=== PATIENT | male | born 1960 | race Hispanic/Latino ===

== ENCOUNTER 2022-07-12 22:32 | Inpatient (IN) | payer OTHER ==
[~2022-07-12] VITALS: Ht 167.6 cm; Wt 81.6 kg
[2022-07-12 23:10] LABS: BASOPHILS % (AUTO) 0.8 % (0.0-5.0); EOSINOPHILS % (AUTO) 2.4 % (0.0-8.0); HEMATOCRIT 48.4 % (42-54); LYMPHOCYTES % (AUTO) 25.2 % (21.0-51.0); MEAN CORPUSCULAR HEMOGLOBIN 28.8 pg (27.0-33.0); MEAN CORPUSCULAR HGB CONC 32.2 g/dL (32.0-36.0); MEAN CORPUSCULAR VOLUME 89.5 fL (79-99); MONOCYTES % (AUTO) 7.1 % (3.0-13.0); PLATELET COUNT (AUTO) 252 K/uL (130-400); RED BLOOD CELL COUNT(AUTO) 5.41 MIL/uL (4.50-6.20); RED CELL DISTRIBUTION WIDTH 14.6 % (11.0-15.5); WHITE BLOOD COUNT (AUTO) 9.4 K/uL (4.8-10.8)
[2022-07-12 23:21] LABS: INR 0.93 (0.85-1.15)
[2022-07-12 23:22] LABS: PARTIAL THROMBOPLASTIN TIME 27.6 SEC (26.3-35.5)
[2022-07-12 23:27] LABS: ALBUMIN 3.4 g/dL (3.5-5.0); POTASSIUM 3.4 mmol/L (3.5-5.1); TOTAL PROTEIN, SERUM 7.5 g/dL (6.0-8.3)
[2022-07-12] MEDS ORDERED: LABETALOL 20MG SYG IV ONE (23:30)
[2022-07-12 23:35] LABS: B-TYPE NATRIURETIC PEPTIDE 19 pg/mL (0-100)
[2022-07-13] MEDS ORDERED: IOHEXOL 350 MG/ML 100ML INFUS..BTL IV ONE (00:06)
[2022-07-13] MEDS ORDERED: ENALAPRILAT DIHYDRATE 1.25MG/ML 1ML VIAL IV SCH (02:30)
[2022-07-13] MEDS ORDERED: LABETALOL 20MG SYG IV ONE (02:30)
[2022-07-13] MEDS ORDERED: ASPIRIN 325MG EC TAB PO ONE (02:30)
[2022-07-13] MEDS ORDERED: ONDANSETRON 4MG INJ IV PRN (02:30)
[2022-07-13] MEDS ORDERED: CLONIDINE HCL 0.1 MG TABLET PO PRN (02:30)
[2022-07-13] MEDS ORDERED: ENALAPRILAT DIHYDRATE 1.25MG/ML 1ML VIAL IV PRN (02:30)
[2022-07-13] MEDS ORDERED: CLOPIDOGREL 75MG TAB PO ONE (02:30)
[2022-07-13] MEDS: 0.9%NACL 1000ML 1,000 ML IV SCH ×2 (03:15→19:10)
[2022-07-13 03:21] LABS: APPEARANCE,URINE CLEAR (CLEAR); BILIRUBIN,URINE NEGATIVE (NEGATIVE); COLOR,URINE COLORLESS (YELLOW); GLUCOSE, URINE (UA) NEGATIVE (NEGATIVE); KETONES,URINE NEGATIVE (NEGATIVE); LEUKOCYTE ESTERASE ,URINE NEGATIVE Leu/uL (NEGATIVE); NITRATE,URINE NEGATIVE (NEGATIVE); OCCULT BLOOD,URINE NEGATIVE (NEGATIVE); PROTEIN,URINE NEGATIVE (NEGATIVE); UROBILINOGEN,URINE 0.2 mg/dL (0.2-1.0)
[2022-07-13 03:27] LABS: BACTERIA,URINE None Seen /HPF (None Seen); RBC,URINE 0-1 /HPF (0-1); WBC,URINE 0-1 /HPF (0-1)
[2022-07-13] MEDS ORDERED: POTASSIUM CHLORIDE 20MEQ/100ML 100 ML IV PRN (03:30)
[2022-07-13] MEDS ORDERED: LIDOCAINE HCL-MPF 1% 2ML VIAL IV PRN (03:30)
[2022-07-13] MEDS ORDERED: KCL 20 MEQ ERTAB PO PRN (03:30)
[2022-07-13] MEDS ORDERED: POTASSIUM CHLORIDE 10% ELIXIR 20 MEQ/15 ML UDCUP PO PRN (03:30)
[2022-07-13 04:26] VITALS: BP 153/73
[2022-07-13 06:11] LABS: CHOLESTEROL 199 mg/dL (<200); HDL CHOLESTEROL 48 mg/dL (29-71); LDL DIRECT 121 mg/dL (0-99); TRIGLYCERIDES 201 mg/dL (30-200)
[2022-07-13 08:46] VITALS: BP 144/74
[2022-07-13] MEDS: CLOPIDOGREL 75MG TAB PO SCH ×2 (09:00→10:20)
[2022-07-13 10:18] LABS: AMPHET/METH SCREEN,URINE NEGATIVE (NEGATIVE); BARBITURATE SCREEN, URINE NEGATIVE (NEGATIVE); BENZODIAZEPINES SCREEN,URINE NEGATIVE (NEGATIVE); CANNABINOID SCREEN,URINE NEGATIVE (NEGATIVE); COCAINE SCREEN,URINE POSITIVE (NEGATIVE); PHENCYCLIDINE SCREEN,URINE NEGATIVE (NEGATIVE)
[2022-07-13] MEDS: ENOXAPARIN SODIUM 40 MG/0.4 ML SYRINGE SQ SCH (10:20)
[2022-07-13] MEDS: FAMOTIDINE 20MG VIAL IV SCH (10:20)
[2022-07-13] MEDS: LISINOPRIL 10 MG TABLET PO SCH (10:21)
[2022-07-13] MEDS: ASPIRIN 81MG CHEW TAB PO SCH (10:22)
[2022-07-13 12:37] VITALS: BP 160/99
[2022-07-13 16:40] VITALS: BP 162/81
[2022-07-13 19:12] VITALS: BP 164/98
[2022-07-13] MEDS ORDERED: ATORVASTATIN 40 MG TABLET PO SCH (21:00)
[2022-07-14 00:12] VITALS: BP 146/86
[2022-07-14 03:12] VITALS: BP 150/98
[2022-07-14 03:35] LABS: BASOPHILS % (AUTO) 0.8 % (0.0-5.0); EOSINOPHILS % (AUTO) 4.3 % (0.0-8.0); HEMATOCRIT 49.2 % (42-54); LYMPHOCYTES % (AUTO) 23.1 % (21.0-51.0); MEAN CORPUSCULAR HEMOGLOBIN 28.8 pg (27.0-33.0); MEAN CORPUSCULAR HGB CONC 31.5 g/dL (32.0-36.0); MEAN CORPUSCULAR VOLUME 91.3 fL (79-99); MONOCYTES % (AUTO) 6.8 % (3.0-13.0); NEUTROPHILS % (AUTO) 64.4 % (40.0-77.0); PLATELET COUNT (AUTO) 259 K/uL (130-400); RED BLOOD CELL COUNT(AUTO) 5.39 MIL/uL (4.50-6.20); RED CELL DISTRIBUTION WIDTH 14.6 % (11.0-15.5); WHITE BLOOD COUNT (AUTO) 8.9 K/uL (4.8-10.8)
[2022-07-14 04:13] LABS: CREATININE 1.2 mg/dL (0.5-1.5); PHOSPHORUS 3.9 mg/dL (2.5-4.9); POTASSIUM 3.7 mmol/L (3.5-5.1)
[2022-07-14 04:18] LABS: HEMOGLOBIN A1C 5.7 % (4.0-6.0)
[2022-07-14] MEDS: CLOPIDOGREL 75MG TAB PO SCH ×2 (07:48→08:19)
[2022-07-14] MEDS: LISINOPRIL 10 MG TABLET PO SCH (08:19)
[2022-07-14] MEDS: FAMOTIDINE 20MG VIAL IV SCH (08:19)
[2022-07-14] MEDS: ASPIRIN 81MG CHEW TAB PO SCH (08:19)
[2022-07-14] MEDS: ENOXAPARIN SODIUM 40 MG/0.4 ML SYRINGE SQ SCH (08:20)
[2022-07-14 08:45] VITALS: BP 167/100
[2022-07-14] MEDS ORDERED: ATOR40TA69 PO (10:59)
[2022-07-14] MEDS ORDERED: LISI10TA24 PO (10:59)
[2022-07-14] MEDS ORDERED: ASPI-1005 PO (10:59)
[2022-07-14] MEDS ORDERED: CLOP75TA14 PO (10:59)
[2022-07-14 12:26] VITALS: BP 163/96
== END 2022-07-14 15:25 | disposition home or self-care (01) | DRG 66 ==
LOC: EDH 22:32 → EDHIP 22:33 → 2DH 07-13 03:58
PROVIDERS: ADMIT Internal Medicine; ATTEND Internal Medicine
DX: I63.511 Cerebral infarction due to unspecified occlusion or stenosis of right middle cerebral artery (principal); I16.0 Hypertensive urgency; Z20.822 Contact with and (suspected) exposure to COVID-19; E87.6 Hypokalemia; F14.90 Cocaine use, unspecified, uncomplicated; F17.210 Nicotine dependence, cigarettes, uncomplicated; I10 Essential (primary) hypertension; Z86.73 Personal history of transient ischemic attack (TIA), and cerebral infarction without residual deficits; Z68.30 Body mass index [BMI] 30.0-30.9, adult; Z79.899 Other long term (current) drug therapy; Z79.82 Long term (current) use of aspirin; Z79.02 Long term (current) use of antithrombotics/antiplatelets
CPT/HCPCS: 36415; 70450; 70496; 70498; 70551; 71045; 80048; 80053; 80061; 80305; 81001; 81003; 82550; 82948; 83036; 83721; 83735; 83880; 84100; 84484; 85025; 85610; 85730; 87635; 92522; 92610; 93005; 93306; 93356; C9803; G0378; J1650; J3480; J3490; J7030; Q9967

== ENCOUNTER 2025-09-23 23:26 | Emergency (ER) | payer OTHER, MEDICARE ==
[~2025-09-23] VITALS: Ht 167.6 cm; Wt 89.4 kg
[~2025-09-23 23:26] MED LIST: ASPI-1005 PO; ATOR40TA69 PO; CLOP-31 PO; LISI10TA24 PO
--- NOTE | 2025-09-23 23:37 | EKG ---
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
[2025-09-24 00:06] LABS: IMMATURE GRANULOCYTE ABSOLUTE 0.04 K/uL (0-1); NUCLEATED RED BLOOD CELLS 0.0 % (0.0-0.19); PLATELET COUNT (AUTO) 278 K/uL (130-400); RED BLOOD CELL COUNT(AUTO) 4.48 MIL/uL (4.50-6.20); RED CELL DISTRIBUTION WIDTH 13.6 % (11.0-15.5); WHITE BLOOD COUNT (AUTO) 10.6 K/uL (4.8-10.8)
[2025-09-24 00:15] LABS: CREATININE 0.9 mg/dL (0.5-1.3); GLOMERULAR FILTR. RATE CALC 94.0 mL/min (>90); GLUCOSE,RANDOM 111.0 mg/dL (70-105); SODIUM SERUM 139.0 mmol/L (136-145); UREA NITROGEN, BLOOD 13.0 mg/dL (7-18)
[2025-09-24 00:18] LABS: INR 0.96 (0.85-1.15)
--- NOTE | 2025-09-24 00:19 | HMCIMG ---
EXAM: CR Chest, 1 view CLINICAL HISTORY: Chest pain. COMPARISON: None provided. FINDINGS: The lungs show no infiltrates or other acute findings. No pleural effusion or pneumothorax. Mild cardiomegaly. Mild atherosclerotic aorta. No acute osseous abnormality. IMPRESSION: Mild cardiomegaly. Recommend echocardiography for further evaluation. The lungs are clear. /[place]
[2025-09-24 00:21] LABS: CREATINE KINASE, TOTAL 62.0 U/L (21-232)
[2025-09-24 01:09] LABS: AMPHET/METH SCREEN,URINE NEGATIVE (NEGATIVE); BARBITURATE SCREEN, URINE NEGATIVE (NEGATIVE); CANNABINOID SCREEN,URINE NEGATIVE (NEGATIVE); COCAINE SCREEN,URINE POSITIVE (NEGATIVE)
[2025-09-24 01:19] VITALS: BP 139/88; PULSE 78; RESP 16; TEMP 98.1; O2SAT 95
--- NOTE | 2025-09-24 01:19 | ERN ---
General Chief Complaint: Chest Pain Stated Complaint: C/O CP Time Seen by MD: 23:27 Time Seen by Midlevel: 23:27 Source: patient History of Present Illness Initial Comments 65-year-old male presents to the emergency department for evaluation of chest pain that started prior to arrival. No other symptoms reported. On arrival he does state his chest pain has completely resolved and reports feeling better. Allergies: Coded Allergies: No Known Drug Allergies (Unverified Allergy, Unknown, 07/12/22) Home Meds Active Scripts Lisinopril (Lisinopril) 10 Mg Tablet, 10 MG PO DAILY, #30 TAB 0 Refills Prov:DEYSI WILKERSON AGACNP 07/14/22 Clopidogrel Bisulfate (Plavix) 75 Mg Tablet, 75 MG PO DAILY, #21 TAB 0 Refills Prov:DEYSI WILKERSON AGACNP 07/14/22 Aspirin (ASPIRIN 81MG CHEW TAB) 81 Mg Tab.chew, 81 MG PO DAILY, #30 TAB.CHEW 0 Refills Prov:DEYSI WILKERSON AGACNP 07/14/22 Atorvastatin Calcium (LIPITOR) 40 Mg Tablet, 40 MG PO HS, #30 TAB 0 Refills Prov:DEYSI WILKERSON Mark AGACNP 07/14/22 Past Medical History Past Medical History: CVA, High Cholesterol, Hypertension Past Surgical History: None ROS Dictation CONSTITUTIONAL: Negative except for HPI HEAD/FACE: Negative except for HPI EENT: Negative except for HPI RESPIRATORY: Negative except for HPI GASTROINTESTINAL/ABDOMINAL: Negative except for HPI GENITOURINARY: Negative except for HPI MUSCULOSKELETAL: Negative except for HPI INTEGUMENTARY: Negative except for HPI NEUROLOGICAL/PSYCH: Negative except for HPI HEMATOLOGIC/LYMPHATIC: Negative except for HPI All Systems Negative, Except as noted above. 13 point review of systems assessed and all negative except for above. Physical Exam Physical Exam Dictation Vital Signs reviewed General Appearance: Alert, oriented x 3, no acute distress, well developed, nourished. Head and Face: non-traumatic. Eyes: PERRL, pink conjunctivas, eyelid no trauma, anterior chamber with arcus senilis. Ears: Pinnas intact and no signs of trauma or erythema ear canals clear and no discharge TM no erythema Nose: No discharge, no bleeding. Oropharynx: Mouth normal, tongue pink, pharynx clear,no erythema, tonsils no exudates, no abscesses noted, mucous membrane moist Neck: Supple, non-tender, no thyromegaly, no masses, no JVD, no bruits Breast:Deferred Chest:No tenderness, no crepitus, no paradoxical movement, no retractions Lungs:Clear, well-ventilated, symmetric, no rales, no wheezing, no rhonchi, no stridor, good breath sounds bilaterally Heart: Regular rate, regular rhythm, no murmur, no gallops Vascular: no peripheral edema, Abdomen: Soft, positive bowel sounds, nondistended, no guarding, nontender, no rebound, no masses no hepatomegaly, no splenomegaly, no Wilder's sign, no hernias. Rectal: Deferred Genital: Deferred Neurological: Normal speech, motor function intact, sensory function intact Musculoskeletal: Neck nontender, full range of motion, back nontender, full range of motion, Extremities: nontender, full range of motion Skin: Color pink, dry, no turgor, no rash, no lacerations, no abrasions, no contusions. Lymphatic: Deferred Results Laboratory and Microbiology Lab and Micro Result Laboratory Tests Test 09/23/25 22:51 09/24/25 00:40 09/24/25 00:45 White Blood Count 10.6 K/uL (4.8-10.8) Red Blood Count 4.48 MIL/uL (4.50-6.20) L Hemoglobin 12.8 g/dL (14.0-18.0) L Hematocrit 40.4 % (42-54) L Mean Corpuscular Volume 90.2 fL (79-99) Mean Corpuscular Hemoglobin 28.6 pg (27.0-33.0) Mean Corpuscular Hemoglobin Concent 31.7 g/dL (32.0-36.0) L Red Cell Distribution Width 13.6 % (11.0-15.5) Platelet Count 278 K/uL (130-400) Mean Platelet Volume 10.1 fL (7.5-10.5) Immature Granulocyte % (Auto) 0.4 % (0-1) Neutrophils (%) (Auto) 65.0 % (40.0-77.0) Lymphocytes (%) (Auto) 26.2 % (21.0-51.0) Monocytes (%) (Auto) 5.6 % (3.0-13.0) Eosinophils (%) (Auto) 2.4 % (0.0-8.0) Basophils (%) (Auto) 0.4 % (0.0-5.0) Neutrophils # (Auto) 6.9 K/uL (1.8-7.7) Lymphocytes # (Auto) 2.8 K/uL (1.0-4.8) Monocytes # (Auto) 0.6 K/uL (0.1-1.0) Eosinophils # (Auto) 0.26 K/uL (0.00-0.70) Basophils # (Auto) 0.04 K/uL (0.00-0.20) Absolute Immature Granulocyte (auto 0.04 K/uL (0-1) Nucleated Red Blood Cells 0.0 % (0.0-0.19) Prothrombin Time 10.2 SEC (9.6-11.6) Prothromb Time International Ratio 0.96 (0.85-1.15) Activated Partial Thromboplast Time 27.1 SEC (26.3-35.5) Sodium Level 139 mmol/L (136-145) Potassium Level 3.7 mmol/L (3.5-5.1) Chloride Level 104 mmol/L (101-111) Carbon Dioxide Level 23 mmol/L (21-32) Blood Urea Nitrogen 13 mg/dL (7-18) Creatinine 0.9 mg/dL (0.5-1.3) Glomerular Filtration Rate Calc 94 mL/min (>90) Random Glucose 111 mg/dL (70-105) H Total Calcium 8.6 mg/dL (8.5-10.1) Magnesium Level 2.00 mg/dL (1.80-2.40) Total Creatine Kinase 62 U/L (21-232) Troponin I High Sensitivity 11 ng/L (4-75) 11 ng/L (4-75) B-Type Natriuretic Peptide 19 pg/mL (0-100) Urine Opiates Screen NEGATIVE (NEGATIVE) Urine Barbiturates Screen NEGATIVE (NEGATIVE) Urine Phencyclidine Screen NEGATIVE (NEGATIVE) Urine Amphetamines Screen NEGATIVE (NEGATIVE) Urine Benzodiazepines Screen NEGATIVE (NEGATIVE) Urine Cocaine Screen POSITIVE (NEGATIVE) H Urine Marijuana (THC) Screen NEGATIVE (NEGATIVE) Labs Reviewed?: Yes MDM MDM: 65-year-old male presents to the ER with nonspecific chest pain. On physical examination the patient is in no acute distress. Vital signs are stable. Cardiac workup was initiated. EKGs normal sinus rhythm. No acute ischemic changes noted. Initial troponin is negative. A repeat troponin was obtained which was also negative. His chest x-ray shows some mild cardiomegaly. Otherwise his blood work is unremarkable. Patient does not have any active chest pain. Heart score is low. We will discharged home with outpatient follow up. Urine drug screen is positive for cocaine which could be a contributing factor to his symptoms. Differential diagnosis: Acute coronary syndrome, drug abuse, costochondritis, pericarditis There are no social concerns with this patient. Prescription drug management Prescriptions will include: None Medical management and examination interpretation discussions were had by me with other qualified healthcare professionals as indicated for the patient's care. ED Course Orders Procedure Category Date Status Time 12 Lead Ekg Tracing- EKG 09/23/25 Resulted Technical 23:28 Cbc With Differential LAB 09/23/25 Complete 23:28 Basic Metabolic Panel LAB 09/23/25 Complete 23:28 B-Type Natriuretic LAB 09/23/25 Complete Peptide 23:28 Creatine Kinase, Total LAB 09/23/25 Complete 23:28 Pt And Ptt LAB 09/23/25 Complete 23:28 Troponin I High LAB 09/23/25 Complete Sensitivity 23:28 Chest 1vw RAD 09/23/25 Resulted 23:28 Magnesium LAB 09/23/25 Complete 23:28 Drug Screen Urine LAB 09/23/25 Complete 23:28 Troponin I High LAB 09/24/25 Complete Sensitivity 00:42 Vital Signs Date Time Temp Pulse Resp B/P (MAP) Pulse Ox O2 Delivery O2 Flow Rate FiO2 09/23/25 23:28 97.5 85 20 158/89 96 Room Air DX & DISP Disposition: Discharge Departure Impression: Primary Impression: Non-cardiac chest pain Condition: Stable Additional Instructions: You were evaluated today for chest pain. Your evaluation included an EKG, chest x-ray, and blood work, including cardiac enzyme testing (troponins). All results were normal. There were no signs of a heart attack or other life- threatening conditions at this time. Your chest pain does not appear to be caused by your heart. Many other things can cause chest discomfort Follow up with your primary care provider within the next 3-5 days for re- evaluation. You may also choose to follow up with a assistant manager quality management if symptoms persist or if you have a history heart disease. Rest and avoid heavy physical exertion until cleared by your doctor. Although your evaluation today was normal, some heart or lung conditions can develop later. If you experience new or worsening pain, please return to the ER for re-evaluation per Referrals: EDDI CONRAD MD (PCP) Time of Disposition: 01:17 I have reviewed the case, and I agree with, Diagnosis and Plan I performed the substantive portion of the visit. I have reviewed and personally made and approve the management plan that is documented in the note by myself or the DANIELLE. I acknowledge for responsibility for the patient's management plan. VALARIE CONRAD PAC Sep 24, 2025 01:19
== END 2025-09-24 01:31 | disposition home or self-care (01) ==
LOC: EDH 23:26
DX: R07.89 Other chest pain (principal); E78.00 Pure hypercholesterolemia, unspecified; I10 Essential (primary) hypertension; Z86.73 Personal history of transient ischemic attack (TIA), and cerebral infarction without residual deficits; Z79.899 Other long term (current) drug therapy; Z79.02 Long term (current) use of antithrombotics/antiplatelets; Z79.82 Long term (current) use of aspirin
CPT/HCPCS: 36415; 71045; 80048; 80305; 82550; 83735; 83880; 84484; 85025; 85610; 85730; 93005; 99285